=== PATIENT | female | born 1995 | race American Indian/Alaskan Native ===

== ENCOUNTER 2020-11-05 17:17 | Emergency (ER) | payer SELFPAY ==
[2020-11-05 17:26] VITALS: BP 136/66
[2020-11-05] MEDS ORDERED: LET TOPICAL (LIDOCAINE/EPINEPHRINE/TETRACAINE) 3 ML TP ONE (17:30)
[2020-11-05] MEDS ORDERED: TETANUS,DIPH,PERTUSS(ACELL) VACCINE 0.5 ML SYRINGE IM ONE (17:30)
--- NOTE | 2020-11-05 19:45 | XRay Report ---
Right hand 3 views INDICATION: Laceration FINDINGS: No radiopaque foreign body is seen. No acute fractures identified. Signer Name: Hernandez Duncan MD Signed: 11/05/2020 7:41 PM Workstation Name: [id number]
--- NOTE | 2020-11-05 20:27 | Emergency Department Report ---
ED Laceration HPI - HPI Chief Complaint: Wound/Laceration Stated Complaint: RT FINGER Time Seen by Provider: 11/05/20 17:27 Occurred When: Today Location: Upper Extremity Severity: mild Tetanus Status: Not up to Date Laceration Symptoms: Yes Pain, No Foreign Body Sensation, No Numbness, No Weakness Other History: This is a 25-year-old female nontoxic, well nourished in appearance, no acute signs of distress presents to the ED with c/o of right thumb pain x several days. Stated was in the kitchen cutting and using knife and caused the laceration. Patient denies decreased sensation or range of motion. Patient stated bleeding is under control. Denies any numbness, tingling, fever, chills, nausea, vomiting, chest pain, shortness of breath, headache or stiff neck. Patient denies any allergies to significant past medical history. Patient is that he is not up-to-date with tetanus. ED Review of Systems ROS: Stated complaint: RT FINGER Other details as noted in HPI Comment: All other systems reviewed and negative Constitutional: denies: chills, fever Eyes: denies: eye pain, eye discharge, vision change ENT: denies: ear pain, throat pain Respiratory: denies: cough, shortness of breath, wheezing Cardiovascular: denies: chest pain, palpitations Endocrine: no symptoms reported Gastrointestinal: denies: abdominal pain, nausea, diarrhea Genitourinary: denies: urgency, dysuria, discharge Musculoskeletal: denies: back pain, joint swelling, arthralgia Skin: denies: rash, lesions Neurological: denies: headache, weakness, paresthesias Psychiatric: denies: anxiety, depression Hematological/Lymphatic: denies: easy bleeding, easy bruising ED Past Medical Hx - Past Medical History Previous Medical History?: No - Surgical History Past Surgical History?: No - Social History Smoking Status: Never Smoker Substance Use Type: None - Medications Home Medications: Home Medications Medication Instructions Recorded Confirmed Last Taken Type Naproxen 500 mg PO Q12H PRN #12 tablet 11/05/20 Unknown Rx Sulfamethoxazole/Trimethoprim 1 each PO BID #14 tablet 11/05/20 Unknown Rx [Bactrim DS TAB] Laceration Physical Exam - Exam General: Vital signs noted. No distress. Alert and acting appropriately. Wound Length (cm): 1 Laceration Location: Upper Extremity Laceration Exam: Yes Normal Distal CMS, No Foreign Body, No Exposed Tendon, Vessel, or Nerve, No Tendon Injury ED Course Vital Signs 11/05/20 17:23 Temperature 98.3 F Pulse Rate 69 Respiratory 18 Rate Blood Pressure 136/66 O2 Sat by Pulse 100 Oximetry - Reevaluation(s) Reevaluation #1: 11/05/20 20:25 Patient is speaking in full sentences with no signs of distress noted. - Laceration /Wound Repair Right Finger Wound Location: upper extremity (Right thumb) Wound Length (cm): 1 Wound's Depth, Shape: superficial Wound Explored: clean Irrigated w/ Saline (ccs): 40 Wound Repaired With: Dermabond Layer Closure?: No Sterile Dressing Applied?: Yes Progress: Under sterile field, I used Betadine to clean the area. I then used 40 mL of normal saline to flush the area. I then used Dermabond to approximate the laceration. I then applied a sterile 4 x 4 with tape. Minimal bleeding noted but is under control. Patient tolerated procedure well with no signs of distress. ED Medical Decision Making - Radiology Data [facility] [address] [place] [address] XRay Report Signed Patient: ELLA HANSON MR#: [id number] : 1995 Acct:[id number] Age/Sex: 25 / F ADM Date: 11/05/20 Loc: ED Attending Dr: Ordering Physician: DIANA BLANCO NP Date of Service: 11/05/20 Procedure(s): XR finger(s) 2+V RT Accession Number(s): [id number] cc: DIANA BLANCO NP Fluoro Time In Minutes: Right hand 3 views INDICATION: Laceration FINDINGS: No radiopaque foreign body is seen. No acute fractures identified. Signer Name: Hernandez Duncan MD Signed: 11/05/2020 7:41 PM Workstation Name: [id number] Transcribed By: CW Dictated By: BRIAN DUNCAN MD Electronically Authenticated By: BRIAN DUNCAN MD Signed Date/Time: 11/05/201940 DD/ 40 TD/TT: - Medical Decision Making This is a 25-year-old female that presents with laceration. Patient is stable and was examined by me. Dermabond applied and patient tolerated well. A sterile dressing has been applied. Patient was educated on proper wound care. Patient is discharged with Bactrim. Patient was instructed to refer to Follow- up with a primary care doctor in 3-5 days or if symptoms worsen and continue re turn to emergency room as soon as possible. At time of discharge, the patient does not seem toxic or ill in appearance. No acute signs of distress noted. Patient agrees to discharge treatment plan of care. No further questions noted by the patient. Critical care attestation.: If time is entered above; I have spent that time in minutes in the direct care of this critically ill patient, excluding procedure time. ED Disposition Clinical Impression: Laceration of right thumb Qualifiers: Encounter type: initial encounter Damage to nail status: without damage Foreign body presence: without foreign body Qualified Code(s): S61.011A - Laceration without foreign body of right thumb without damage to nail, initial encounter Disposition: HOME / SELF CARE / HOMELESS Is pt being admited?: No Does the pt Need Aspirin: No Condition: Stable Instructions: Laceration Care, Adult Additional Instructions: Follow-up with a primary care doctor in 3-5 days or if symptoms worsen and continue return to emergency room as soon as possible. Prescriptions: Sulfamethoxazole/Trimethoprim [Bactrim DS TAB] 1 each PO BID #14 tablet Naproxen 500 mg PO Q12H PRN #12 tablet PRN Reason: Pain , Severe (7-10) Referrals: CARRIE MCNAIR MD [Referring] - 3-5 Days MAGNUS ORTIZ MD [Staff Physician] - 3-5 Days Time of Disposition: 20:28
== END 2020-11-05 20:42 | disposition home or self-care (01) ==
LOC: ED 17:17
DX: S61.011A Laceration without foreign body of right thumb without damage to nail, initial encounter (principal); Z88.0 Allergy status to penicillin; W26.0XXA Contact with knife, initial encounter; Y93.89 Activity, other specified; Y92.89 Other specified places as the place of occurrence of the external cause; Y99.8 Other external cause status
CPT/HCPCS: 90471; 90715; 99283